=== PATIENT | female | born 1960 | race Caucasian/White ===

== ENCOUNTER → 2016-12-03 | Outpatient (CLI) | payer OTHER ==
[~2016-12-03] MED LIST: AMLO2.5T PO; BUSP15TA47 PO; FLUO20CA8 PO; ISOS1TAB13 PO; LISI40TAB PO; METF500T13 PO; METO1TAB87 PO; POTA99TA PO; RANI150T PO; VITA400T2 PO
[2016-12-03 19:53] LABS: ALBUMIN 3.3 GM/DL (3.2-5.2); ALKALINE PHOSPHATASE 121 U/L (45-117); ALT/SGPT 64 U/L (12-78); ANION GAP 10 MEQ/L (8-16); AST/SGOT 109 U/L (15-37); BILIRUBIN,TOTAL 1.2 MG/DL (0.2-1.0); BLOOD UREA NITROGEN 8 MG/DL (7-18); CALCIUM LEVEL 8.5 MG/DL (8.5-10.1); CARBON DIOXIDE LEVEL 28 MEQ/L (21-32); CHLORIDE LEVEL 102 MEQ/L (98-107); CHOLESTEROL LEVEL 147 MG/DL (<200); CREATININE FOR GFR 0.84 MG/DL (0.55-1.02); FREE T4 1.28 NG/DL (0.76-1.46); GLOMERULAR FILTRATION RATE > 60.0 (>51); GLUCOSE, FASTING 166 MG/DL (70-105); POTASSIUM SERUM 4.1 MEQ/L (3.5-5.1); SODIUM LEVEL 140 MEQ/L (136-145); TRIGLYCERIDES LEVEL 111 MG/DL (<150)
[2016-12-03 20:31] LABS: BASO % 0.9 % (0.0-1.0); EOS % 0.5 % (0.0-3.0); LARGE UNSTAINED CELL # 0.1 K/mm3 (0.0-0.4); LARGE UNSTAINED CELL % 2.1 % (0.0-4.0); LYMPH # 1.9 K/mm3 (1.5-4.5); LYMPH % 41.8 % (24.0-44.0); MEAN CORPUSCULAR HEMOGLOBIN 38.2 pg (27.0-33.0); MEAN CORPUSCULAR HGB CONC 33.6 g/dl (32.0-36.5); MEAN CORPUSCULAR VOLUME 113.6 fl (80.0-96.0); MONO # 0.4 K/mm3 (0.0-0.8); MONO % 7.7 % (0.0-5.0); NEUTROPHILS # 2.2 K/mm3 (1.8-7.7); PLATELET COUNT, AUTOMATED 110 k/mm3 (150-450); RED CELL DISTRIBUTION WIDTH 14.3 % (11.5-14.5); WHITE BLOOD COUNT 4.6 K/mm3 (4.0-10.0)
[2016-12-03 20:35] LABS: ADD MORPHOLOGY? YES
[2016-12-03 21:25] LABS: ANISOCYTOSIS 1+; POLYCHROMASIA 1+
== END ==
LOC: M WUC 13:22
PROVIDERS: ATTEND Nurse Practitioner Adult Health
DX: E78.00 Pure hypercholesterolemia, unspecified (principal); I10 Essential (primary) hypertension; F33.1 Major depressive disorder, recurrent, moderate; R94.5 Abnormal results of liver function studies

== ENCOUNTER → 2016-12-31 | Outpatient (CLI) | payer OTHER ==
--- NOTE | 2016-12-31 09:30 | REP ---
RIGHT UPPER QUADRANT ULTRASOUND: Real-time sonographic evaluation of the right upper quadrant performed. The gallbladder demonstrates no evidence of intraluminal sludge or calculi, wall thickening or pericholecystic fluid. There is no intrahepatic or extrahepatic biliary dilatation, common bile duct measuring 5 mm in diameter. Survey of the liver demonstrates diffuse heterogeneous increased echotexture suggesting diffuse fibrofatty infiltration. No liver or pancreatic mass is seen. The pancreas is not optimally visualized due to overlying bowel gas. The right kidney demonstrates no hydronephrosis or nephrolithiasis with normal size at 11.2 cm in length. The study is somewhat limited due to patient body habitus. IMPRESSION: Diffuse fibrofatty infiltration of the liver. Signed by Regulo Azul MD 12/31/2016 04:53 P
--- NOTE | 2016-12-31 09:43 | REP ---
MR BRAIN WITHOUT AND WITH CONTRAST: HISTORY: Dizziness. CONTRAST: ProHance 26 mL. Several punctate areas of increased signal intensity on T2-weighted images are present in the periventricular and subcortical white matter and doris. This represents small vessel ischemic disease. There is no intraparenchymal hemorrhage, infarct, mass or midline shift. There is no abnormal enhancement. The ventricular system and cortical sulci, as well as subarachnoid space in the posterior fossa are dilated consistent with minimal volume loss. There is no extracerebral collection. There is no cerebellopontine angle mass. The inner ear structures are normal in appearance. Minimal mucosal thickening is present in the right mastoid air cells. The sinuses are clear. IMPRESSION: 1. Minimal small vessel ischemic disease. 2. Minimal volume loss. Signed by Avinash Garcia MD 12/31/2016 09:45 A
== END ==
LOC: M RAD 07:58
PROVIDERS: ATTEND Nurse Practitioner Adult Health
DX: R94.5 Abnormal results of liver function studies (principal); I10 Essential (primary) hypertension; R42 Dizziness and giddiness; K76.0 Fatty (change of) liver, not elsewhere classified; I25.9 Chronic ischemic heart disease, unspecified
CPT/HCPCS: 70553; 76705; A9576

== ENCOUNTER → 2017-02-06 | Outpatient (REF) | payer OTHER | LOC: M SFHCWAGY 16:10 | PROVIDERS: ATTEND Nurse Practitioner Family | DX: Z12.4 Encounter for screening for malignant neoplasm of cervix (principal) ==

== ENCOUNTER → 2017-02-06 | Outpatient (CLI) | payer OTHER ==
--- NOTE | 2017-02-06 16:49 | REPMRS ---
Patient History The patient states she had a clinical breast exam in 01/2017. Patient is postmenopausal and has history of cervical cancer at age 31. Family history of colorectal cancer in mother and colorectal cancer in maternal grandmother. Digital Woman Screen Mammo: February 06, 2017 - Exam #: [id number] Bilateral CC and MLO view(s) were taken. Technologist: Jeniffer Guo, Technologist Prior study comparison: September 12, 2008, left breast digital mammo diagnostic unilateral, performed at [facility]. August 25, 2008, digital bilateral screening mammo performed at [facility]. FINDINGS: There are scattered fibroglandular densities. There has been no change in the appearance of the mammogram from the prior studies. There is a mild amount of scattered fibroglandular density which is fairly symmetric. There is no interval development of dominant mass, architectural distortion, or clustered microcalcification suggestive of malignancy. ASSESSMENT: BI-RADS/ACR category 1 mammogram. Negative. Recommendation Routine screening mammogram in 1 year (for women over age 40). This mammogram was interpreted with the aid of an FDA-approved computer-aided dectection system. Electronically Signed By: Ge Martin MD 02/06/17 [id number]
== END ==
LOC: M WHC 15:14
PROVIDERS: ATTEND Nurse Practitioner Family
DX: Z12.31 Encounter for screening mammogram for malignant neoplasm of breast (principal)

== ENCOUNTER → 2017-03-06 | Outpatient (REF) | payer OTHER | LOC: M LAB REF 13:41 | PROVIDERS: ATTEND Physician Assistant Medical | DX: R19.4 Change in bowel habit (principal); R19.7 Diarrhea, unspecified ==

== ENCOUNTER → 2017-03-10 | Outpatient (CLI) | payer OTHER ==
[2017-03-10 14:31] LABS: MEAN CORPUSCULAR HGB CONC 34.5 g/dl (32.0-36.5); RED CELL DISTRIBUTION WIDTH 14.2 % (11.5-14.5); WHITE BLOOD COUNT 4.8 10^3/uL (4.0-10.0)
[2017-03-10 14:32] LABS: MEAN CORPUSCULAR VOLUME 107.1 fl (80.0-96.0)
[2017-03-10 15:11] LABS: ALBUMIN 3.1 GM/DL (3.2-5.2); ALKALINE PHOSPHATASE 128 U/L (45-117); ALT/SGPT 43 U/L (12-78); ANION GAP 10 MEQ/L (8-16); AST/SGOT 81 U/L (15-37); BILIRUBIN,TOTAL 1.1 MG/DL (0.2-1.0); BLOOD UREA NITROGEN 6 MG/DL (7-18); CALCIUM LEVEL 8.2 MG/DL (8.5-10.1); CARBON DIOXIDE LEVEL 28 MEQ/L (21-32); CHLORIDE LEVEL 101 MEQ/L (98-107); CREATININE FOR GFR 0.82 MG/DL (0.55-1.02); FREE T4 1.31 NG/DL (0.76-1.46); GLOMERULAR FILTRATION RATE > 60.0 (>51); GLUCOSE, FASTING 203 MG/DL (70-105); POTASSIUM SERUM 3.1 MEQ/L (3.5-5.1); SODIUM LEVEL 139 MEQ/L (136-145); TOTAL PROTEIN 7.5 GM/DL (6.4-8.2)
== END ==
LOC: M LAB 13:39
PROVIDERS: ATTEND Physician Assistant Medical
DX: R19.4 Change in bowel habit (principal)

== ENCOUNTER → 2017-04-10 | Outpatient (CLI) | payer OTHER ==
[2017-04-10 14:51] LABS: INR 1.16
[2017-04-10 15:19] LABS: ALKALINE PHOSPHATASE 125 U/L (45-117); ALT/SGPT 51 U/L (12-78); ANION GAP 8 MEQ/L (8-16); AST/SGOT 91 U/L (7-37); BILIRUBIN,DIRECT 0.4 MG/DL (0.0-0.2); BILIRUBIN,TOTAL 0.9 MG/DL (0.2-1.0); BLOOD UREA NITROGEN 8 MG/DL (7-18); CALCIUM LEVEL 8.6 MG/DL (8.5-10.1); CARBON DIOXIDE LEVEL 30 MEQ/L (21-32); CHLORIDE LEVEL 100 MEQ/L (98-107); CREATININE FOR GFR 0.71 MG/DL (0.55-1.02); GLOMERULAR FILTRATION RATE > 60.0 (>51); GLUCOSE, FASTING 188 MG/DL (70-105); PERCENT SATURATION 38.8 % (13.2-45.0); POTASSIUM SERUM 3.7 MEQ/L (3.5-5.1); SODIUM LEVEL 138 MEQ/L (136-145); TOTAL IRON BINDING CAPACITY 384 UG/DL (250-450); TOTAL PROTEIN 7.3 GM/DL (6.4-8.2)
== END ==
LOC: M LAB 13:48
PROVIDERS: ATTEND Physician Assistant Medical
DX: R94.5 Abnormal results of liver function studies (principal); E87.6 Hypokalemia

== ENCOUNTER → 2017-04-27 | Outpatient (CLI) | payer OTHER ==
[~2017-04-27] MED LIST changes: +PROHANCE 279.3MG/ML 15ML VIAL (A9576) As Ordered ONE
--- NOTE | 2017-04-27 13:30 | REP ---
Abdomen supine: 04/27/2017. Clinical history: Recent colonoscopy with biopsy in early March and with a clip placed. Checking to see if the clip remains in place or has passed. She has request for liver MRI. Two-view show clips in the right mid abdomen adjacent to the cecal tip consistent with appendectomy. I do not see other metallic clips with particular attention to the pelvis in the region of the sigmoid colon where the clip was placed. Gas pattern nonspecific. A couple of pelvic phleboliths noted. Some mild dextrorotation of the lumbar spine. Impression: 1. There are at least three metallic clips in the region of the cecal tip consistent with an appendectomy. This should be correlated with clinical history. There is no other metallic clip visible in the lower abdomen and pelvis. If the patient has had an appendectomy, then MRI may be performed. This was discussed in detail with the technologist at the workstation. Signed by Matthias Carter MD 04/28/2017 07:45 P
--- NOTE | 2017-04-28 05:55 | REP ---
MRI abdomen without and with contrast: 04/27/2017. Clinical history: Abnormal liver function tests with elevated AFP and positive Hep C screening. Evaluate for cirrhosis or other. Technique: Coronal T2 with axial T2 and fat suppressed T2 in-and-out phase and pre- gadolinium gradient echo sequences. After infusion of 27 ml of ProHance, arterial phase images and dynamic scanning up to 6 minutes with a coronal fat suppressed gradient-echo sequence also obtained post gadolinium. Findings: The right hepatic lobe is borderline enlarged 17.5 cm in vertical diameter in the midclavicular line. The left hepatic lobe is enlarged. Hepatic contours are very mildly lobulated with somewhat coarsening texture to the liver parenchyma on the gradient echo images. There is no visible discrete or measurable mass in the liver either solid or cystic nodule. In-and-out of phase images show generalized signal drop off in the liver indicating some degree of fatty infiltration. The gallbladder shows no visible stone, wall thickening or mass. No intrahepatic ductal dilatation and the extrahepatic common duct into the pancreatic head region is unremarkable. Pancreas was intact. Adrenal glands normal. Upper poles of kidneys intact on the axial images and normal in their entirety on the coronal sequences. No hydronephrosis or hydroureter. The aorta is without aneurysm. No periaortic or retroperitoneal pathologic sized lymphadenopathy or ascites. Spleen is up to 14.6 cm long and homogeneous on precontrast and delayed postcontrast images. With contrast administration, there was no abnormal enhancement or focal lesions in the liver or spleen. Adrenal glands and kidneys show no abnormal enhancement or mass. The aorta is unremarkable. Pancreas intact. Visualized marrow intact. Impression: 1. Borderline overall enlargement of the liver with a vertical diameter of 17.5 cm in the right lobe in the midclavicular line but with the left hepatic lobe enlarged, some diffuse fatty infiltration although mild, lobulated contour and coarsened appearance of the parenchyma all suggesting cirrhosis. 2. Spleen is mildly enlarged without focal lesion. No ascites. No other finding. Signed by Matthias Carter MD 04/28/2017 08:23 P
== END ==
LOC: M RAD 10:14
PROVIDERS: ATTEND Physician Assistant Medical
DX: R94.5 Abnormal results of liver function studies (principal)
CPT/HCPCS: 74000; 74183; A9576

== ENCOUNTER → 2017-06-16 | Outpatient (CLI) | payer OTHER ==
[2017-06-16 16:48] LABS: ALBUMIN 3.4 GM/DL (3.2-5.2); ALBUMIN/GLOBULIN RATIO 0.68 (1.00-1.93); ALKALINE PHOSPHATASE 102 U/L (45-117); ALT/SGPT 52 U/L (12-78); AST/SGOT 97 U/L (7-37); BILIRUBIN,DIRECT 0.4 MG/DL (0.0-0.2); BILIRUBIN,TOTAL 1.1 MG/DL (0.2-1.0); TOTAL PROTEIN 8.4 GM/DL (6.4-8.2)
[2017-06-20 08:07] LABS: ALPHA 2-MACROGLOBULIN 387 mg/dL (110-276); ALT 50 IU/L (0-40); APOLIPOPROTEIN A-1 112 mg/dL (116-209); FIBROSIS SCORE 0.92 (0.00-0.21); GGT 119 IU/L (0-60); HAPTOGLOBIN 29 mg/dL (34-200); HEPATITIS C GENOTYPE 1b (.); HEPATITIS C QUANTITATION 4307240 IU/mL (.); NECROINFLAM SCORE 0.51 (0.00-0.17); NECROINFLAMM GRADE A1-A2 (.); TOTAL BILIRUBIN 1.1 mg/dL (0.0-1.2)
== END ==
LOC: M LAB 15:24
DX: B18.2 Chronic viral hepatitis C (principal)
CPT/HCPCS: 84460

== ENCOUNTER → 2017-06-16 | Outpatient (CLI) | payer OTHER ==
[2017-06-16 16:54] LABS: ESTIMATED AVERAGE GLUCOSE 111 MG/DL (60-110); HEMOGLOBIN A1c 5.5 %
== END ==
LOC: M LAB 15:18
DX: E11.9 Type 2 diabetes mellitus without complications (principal)
CPT/HCPCS: 83036

== ENCOUNTER → 2017-09-21 | Outpatient (CLI) | payer OTHER ==
[2017-09-21 16:05] LABS: ALBUMIN 3.2 GM/DL (3.2-5.2); ALBUMIN/GLOBULIN RATIO 0.68 (1.00-1.93); ALKALINE PHOSPHATASE 102 U/L (45-117); ALT/SGPT 18 U/L (12-78); AST/SGOT 31 U/L (7-37); BILIRUBIN,DIRECT 1.9 MG/DL (0.0-0.2); BILIRUBIN,TOTAL 2.5 MG/DL (0.2-1.0); TOTAL PROTEIN 7.9 GM/DL (6.4-8.2)
== END ==
LOC: M LAB 15:19
DX: B18.2 Chronic viral hepatitis C (principal)
CPT/HCPCS: 80076

== ENCOUNTER 2017-10-08 11:22 | Day surgery (SDC) | payer OTHER ==
[2017-10-08] MEDS ORDERED: fentaNYL 100 MCG/2 ML INJECTION (J3010) As Ordered (13:39)
[2017-10-08] MEDS ORDERED: PROPOFOL 500 MG/50 ML VIAL As Ordered (13:42)
[2017-10-08] MEDS ORDERED: LIDOCAINE 2% INJ 100 MG/5 ML SDV (FOR ANES.) As Ordered (13:44)
== END 2017-10-08 15:15 | disposition home or self-care (01) ==
LOC: M OPP 11:22
DX: Z09 Encounter for follow-up examination after completed treatment for conditions other than malignant neoplasm (principal); D49.0 Neoplasm of unspecified behavior of digestive system; Z86.010 Personal history of colon polyps; D12.2 Benign neoplasm of ascending colon; K57.30 Diverticulosis of large intestine without perforation or abscess without bleeding; K64.8 Other hemorrhoids; R12 Heartburn; I86.4 Gastric varices; I20.9 Angina pectoris, unspecified; I10 Essential (primary) hypertension; E11.9 Type 2 diabetes mellitus without complications; I85.00 Esophageal varices without bleeding; K21.9 Gastro-esophageal reflux disease without esophagitis; B18.2 Chronic viral hepatitis C; F41.9 Anxiety disorder, unspecified; F32.9 Major depressive disorder, single episode, unspecified; Z87.440 Personal history of urinary (tract) infections; F17.210 Nicotine dependence, cigarettes, uncomplicated; Z79.84 Long term (current) use of oral hypoglycemic drugs; Z79.899 Other long term (current) drug therapy; Z85.41 Personal history of malignant neoplasm of cervix uteri; Z80.0 Family history of malignant neoplasm of digestive organs
CPT/HCPCS: 45385

== ENCOUNTER → 2017-12-01 | Outpatient (CLI) | payer OTHER ==
[2017-12-01 09:07] LABS: HEMATOCRIT 37.7 % (36.0-47.0); HEMOGLOBIN 13.3 g/dl (12.0-15.5); MEAN CORPUSCULAR HEMOGLOBIN 38.4 pg (27.0-33.0); MEAN CORPUSCULAR HGB CONC 35.3 g/dl (32.0-36.5); PLATELET COUNT, AUTOMATED 132 10^3/uL (150-450); RED BLOOD COUNT 3.46 10^6/uL (4.00-5.40); RED CELL DISTRIBUTION WIDTH 13.1 % (11.5-14.5); WHITE BLOOD COUNT 4.7 10^3/uL (4.0-10.0)
[2017-12-01 09:30] LABS: ALBUMIN 3.1 GM/DL (3.2-5.2); ALBUMIN/GLOBULIN RATIO 0.79 (1.00-1.93); ALKALINE PHOSPHATASE 80 U/L (45-117); ALT/SGPT 18 U/L (12-78); AST/SGOT 29 U/L (7-37); BILIRUBIN,DIRECT 0.4 MG/DL (0.0-0.2); BILIRUBIN,TOTAL 0.7 MG/DL (0.2-1.0)
[2017-12-01 09:54] LABS: INR 1.15; PROTHROMBIN TIME 14.8 SECONDS (12.1-14.4)
[2017-12-01 09:55] LABS: ALPHA FETOPROTEIN TUMOR QUANT 7.2 NG/ML (<8.1); PARTIAL THROMBOPLASTIN TIME 29.4 SECONDS (25.4-37.6)
== END ==
LOC: M RAD 07:47
DX: K74.60 Unspecified cirrhosis of liver (principal); B18.2 Chronic viral hepatitis C
CPT/HCPCS: 76705

== ENCOUNTER → 2017-12-14 | Outpatient (CLI) | payer OTHER ==
[2017-12-14 14:23] LABS: BASO % 0.2 % (0.0-1.0); EOS # 0.1 10^3/uL (0.0-0.50); EOS % 0.9 % (0.0-3.0); HEMATOCRIT 41.2 % (36.0-47.0); HEMOGLOBIN 14.4 g/dl (12.0-15.5); IMMATURE GRANULOCYTE % 0.2 % (0-3.0); LYMPH # 2.2 10^3/uL (1.5-4.5); LYMPH % 38.7 % (24.0-44.0); MEAN CORPUSCULAR VOLUME 108.7 fl (80.0-96.0); MONO # 0.7 10^3/uL (0.0-0.8); MONO % 11.2 % (0.0-5.0); NEUTROPHILS # 2.8 10^3/uL (1.8-7.7); NEUTROPHILS % 48.8 % (36.0-66.0); PLATELET COUNT, AUTOMATED 138 10^3/uL (150-450); RED BLOOD COUNT 3.79 10^6/uL (4.00-5.40); WHITE BLOOD COUNT 5.8 10^3/uL (4.0-10.0)
[2017-12-14 14:49] LABS: ESTIMATED AVERAGE GLUCOSE 111 MG/DL (60-110); HEMOGLOBIN A1c 5.5 %
[2017-12-14 15:10] LABS: ALBUMIN 3.3 GM/DL (3.2-5.2); ALBUMIN/GLOBULIN RATIO 0.73 (1.00-1.93); ALKALINE PHOSPHATASE 72 U/L (45-117); ALT/SGPT 18 U/L (12-78); ANION GAP 11 MEQ/L (8-16); AST/SGOT 26 U/L (7-37); BILIRUBIN,TOTAL 1.2 MG/DL (0.2-1.0); BLOOD UREA NITROGEN 6 MG/DL (7-18); CALCIUM LEVEL 8.4 MG/DL (8.5-10.1); CARBON DIOXIDE LEVEL 26 MEQ/L (21-32); CHLORIDE LEVEL 105 MEQ/L (98-107); CHOLESTEROL LEVEL 139 MG/DL (<200); CHOLESTEROL RISK RATIO 3.971 (<5); CREATININE FOR GFR 0.69 MG/DL (0.55-1.30); FREE T4 1.22 NG/DL (0.76-1.46); GLOMERULAR FILTRATION RATE > 60.0 (>51); GLUCOSE, FASTING 130 MG/DL (70-100); HDL CHOLESTEROL 35 MG/DL (>40); LDL CHOLESTEROL 80.2 MG/DL (<100); NON-HDL-C 104 MG/DL; POTASSIUM SERUM 3.7 MEQ/L (3.5-5.1); SODIUM LEVEL 142 MEQ/L (136-145); TOTAL 25(OH) VITAMIN D 22.4 NG/ML (30.0-100.0); TOTAL PROTEIN 7.8 GM/DL (6.4-8.2); TRIGLYCERIDES LEVEL 119 MG/DL (<150)
== END ==
LOC: M LAB 13:39
DX: E78.00 Pure hypercholesterolemia, unspecified (principal)
CPT/HCPCS: 84443

== ENCOUNTER → 2017-12-14 | Outpatient (CLI) | payer OTHER | LOC: M LAB 13:36 | DX: B18.2 Chronic viral hepatitis C (principal) | CPT/HCPCS: 87522 ==

== ENCOUNTER → 2018-02-08 | Outpatient (CLI) | payer OTHER ==
[2018-02-08 12:37] LABS: FOLATE 4.6 NG/ML (>5.4)
== END ==
LOC: M LAB 11:00
DX: D64.9 Anemia, unspecified (principal); R19.7 Diarrhea, unspecified
CPT/HCPCS: 82746

== ENCOUNTER → 2018-02-22 | Outpatient (CLI) | payer OTHER ==
[2018-02-22 11:47] LABS: BASO % 0.4 % (0.0-1.0); EOS # 0.1 10^3/uL (0.0-0.50); EOS % 0.9 % (0.0-3.0); HEMATOCRIT 40.9 % (36.0-47.0); HEMOGLOBIN 14.4 g/dl (12.0-15.5); IMMATURE GRANULOCYTE % 0.5 % (0-3.0); LYMPH # 2.2 10^3/uL (1.5-4.5); LYMPH % 39.1 % (24.0-44.0); MEAN CORPUSCULAR HEMOGLOBIN 36.9 pg (27.0-33.0); MEAN CORPUSCULAR HGB CONC 35.2 g/dl (32.0-36.5); MEAN CORPUSCULAR VOLUME 104.9 fl (80.0-96.0); MONO # 0.8 10^3/uL (0.0-0.8); MONO % 13.7 % (0.0-5.0); NEUTROPHILS # 2.6 10^3/uL (1.8-7.7); NEUTROPHILS % 45.4 % (36.0-66.0); PLATELET COUNT, AUTOMATED 129 10^3/uL (150-450); RED CELL DISTRIBUTION WIDTH 14.5 % (11.5-14.5); WHITE BLOOD COUNT 5.6 10^3/uL (4.0-10.0)
[2018-02-22 12:24] LABS: ESTIMATED AVERAGE GLUCOSE 111 MG/DL (60-110); HEMOGLOBIN A1c 5.5 %
[2018-02-22 12:29] LABS: ALKALINE PHOSPHATASE 86 U/L (45-117); ALT/SGPT 23 U/L (12-78); ANION GAP 7 MEQ/L (8-16); AST/SGOT 37 U/L (7-37); BILIRUBIN,TOTAL 1.1 MG/DL (0.2-1.0); BLOOD UREA NITROGEN 9 MG/DL (7-18); CALCIUM LEVEL 8.3 MG/DL (8.5-10.1); CARBON DIOXIDE LEVEL 28 MEQ/L (21-32); CHLORIDE LEVEL 107 MEQ/L (98-107); CREATININE FOR GFR 0.72 MG/DL (0.55-1.30); GLOMERULAR FILTRATION RATE > 60.0 (>51); GLUCOSE, FASTING 125 MG/DL (70-100); POTASSIUM SERUM 4.1 MEQ/L (3.5-5.1); SODIUM LEVEL 142 MEQ/L (136-145); TRIGLYCERIDES LEVEL 147 MG/DL (<150)
[2018-02-22 12:30] LABS: ALBUMIN 3.3 GM/DL (3.2-5.2); ALBUMIN/GLOBULIN RATIO 0.77 (1.00-1.93); CHOLESTEROL LEVEL 158 MG/DL (<200); CHOLESTEROL RISK RATIO 3.853 (<5); FOLATE 9.2 NG/ML (>5.4); FREE T4 1.11 NG/DL (0.76-1.46); HDL CHOLESTEROL 41 MG/DL (>40); LDL CHOLESTEROL 88 MG/DL (<100); NON-HDL-C 117 MG/DL; TOTAL PROTEIN 7.6 GM/DL (6.4-8.2)
== END ==
LOC: M LAB 10:57
DX: E11.65 Type 2 diabetes mellitus with hyperglycemia (principal)
CPT/HCPCS: 82746